=== PATIENT | male | born 1980 | race Caucasian/White ===

== ENCOUNTER 2017-07-06 05:10 | Emergency (ER) | payer OTHER | END 2017-07-06 06:31 | disposition home or self-care (01) | LOC: D.ER 05:10 | DX: M25.511 Pain in right shoulder (principal); I10 Essential (primary) hypertension; F17.200 Nicotine dependence, unspecified, uncomplicated ==

== ENCOUNTER 2017-11-08 12:55 | Emergency (ER) | payer OTHER ==
[2017-11-08 13:58] LABS: APPEARANCE CLEAR (CLEAR); BACTERIA FEW /hpf (NONE SEEN); BILIRUBIN NEGATIVE (NEGATIVE); COLOR YELLOW (YELLOW); EPITHELIAL CELLS OCC /hpf (0-5); GLUCOSE NEGATIVE (NEGATIVE); KETONE NEGATIVE (NEGATIVE); NITRITE NEGATIVE (NEGATIVE); PROTEIN NEGATIVE (NEGATIVE); UROBILINOGEN NORMAL (NORMAL); WHITE CELLS - URINE OCC /hpf (0-5)
== END 2017-11-08 14:51 | disposition home or self-care (01) ==
LOC: D.ER 12:55
PROVIDERS: Emergency Medicine
DX: N23 Unspecified renal colic (principal); I10 Essential (primary) hypertension

== ENCOUNTER 2018-12-07 14:08 | Emergency (ER) | payer OTHER ==
[2018-12-07 14:11] VITALS: BP 146/83; BMI 26.6
[2018-12-07] MEDS ORDERED: HYDROCODON-ACE1 EAC7 PO (14:12)
[2018-12-07] MEDS ORDERED: ZYPREXA5 MG PO (14:12)
[2018-12-07] MEDS ORDERED: VOLTAREN75 MG PO (15:29)
[2018-12-07] MEDS ORDERED: BACLOFEN20 M1 PO (15:29)
== END 2018-12-07 16:01 | disposition home or self-care (01) ==
LOC: D.ER 14:08
DX: S20.212A Contusion of left front wall of thorax, initial encounter (principal); W18.30XA Fall on same level, unspecified, initial encounter; Y93.89 Activity, other specified; Y92.018 Other place in single-family (private) house as the place of occurrence of the external cause

== ENCOUNTER 2019-10-01 13:30 | Emergency (ER) | payer MEDICAID ==
[~2019-10-01] VITALS: Ht 172.7 cm; Wt 72.7 kg
[~2019-10-01 13:30] MED LIST: BACLOFEN20 M1 PO; HYDROCODON-ACE1 EAC7 PO; VOLTAREN75 MG PO; ZYPREXA5 MG PO
[2019-10-01 13:39] VITALS: BP 121/86; Ht 172.7 cm; Wt 72.7 kg
[2019-10-01 14:41] LABS: BILIRUBIN NEGATIVE (NEGATIVE); GLUCOSE NEGATIVE (NEGATIVE); KETONE NEGATIVE (NEGATIVE); NITRITE NEGATIVE (NEGATIVE); UROBILINOGEN NORMAL (NORMAL)
[2019-10-01 14:42] LABS: WHITE CELLS - URINE >50 /hpf (NEGATIVE)
[2019-10-01 14:43] LABS: BACTERIA MODERATE /hpf (NEGATIVE)
[2019-10-01 14:44] LABS: EPITHELIAL CELLS OCC /hpf (0-5)
== END 2019-10-01 18:44 | disposition home or self-care (01) ==
LOC: D.ER 13:30
PROVIDERS: Emergency Medicine
DX: A64 Unspecified sexually transmitted disease (principal); R31.9 Hematuria, unspecified

== ENCOUNTER → 2020-04-27 | Emergency (ER) | payer MEDICAID ==
[~2020-04-27] VITALS: Ht 172.7 cm; Wt 72.7 kg
[~2020-04-27] MED LIST changes: +CIPRO500 MG PO; +IMODIUM2 MG PO
[2020-04-27 10:04] VITALS: BP 112/76; Ht 172.7 cm; Wt 72.7 kg
[2020-04-27 11:29] LABS: BASOPHILS 0.1 % (0-2); EOSINOPHILS 0 % (0-7); HEMATOCRIT 48.4 % (42.0-54.0); HEMOGLOBIN 16.9 g/dL (13.5-17.5); IMMATURE GRANULOCYTES 0.1 % (0-5); LYMPHOCYTES 17.6 % (15-50); MCH 27.7 pg (26.0-34.0); MCHC 34.9 g/dL (31.0-37.0); MCV 79.3 fL (80.0-100.0); MEAN PLATELET VOLUME 10.4 fL (7.4-10.4); MONOCYTES 13.6 % (2-11); NEUTROPHILS 68.6 % (40-80); PLATELET COUNT 259 10x3/uL (130-400); RDW 12.8 % (11.5-14.5); WBC 7.5 10x3/uL (4.8-10.8)
[2020-04-27 11:35] LABS: CALC OSMOLALITY 273 mosm/kg (275-300); CALCIUM 9.5 mg/dL (8.5-10.1); CARBON DIOXIDE 28.6 mmol/L (21.0-32.0); CHLORIDE - SERUM 100 mmol/L (98-107); CREATININE - SERUM 0.9 mg/dL (0.6-1.3); GLUCOSE 103 mg/dL (74-106); POTASSIUM - SERUM 3.7 mmol/L (3.5-5.1); SODIUM 137 mmol/L (136-145); UREA NITROGEN 12 mg/dL (7-18); eGFR NON AFRICAN AMERICAN > 90 mL/min (90-120)
[2020-04-27 11:42] LABS: ALBUMIN 4.2 g/dL (3.4-5.0); ALKALINE PHOSPHATASE 104 U/L (30-120); ALT (SGPT) 60 U/L (10-68); BILIRUBIN - TOTAL 2.07 mg/dL (0.2-1.3); PROTEIN - SERUM 8.3 g/dL (6.4-8.2)
== END | disposition home or self-care (01) ==
LOC: D.ER 09:43
PROVIDERS: Emergency Medicine
DX: A02.0 Salmonella enteritis (principal); R19.7 Diarrhea, unspecified; R11.10 Vomiting, unspecified